=== PATIENT | female | born 1970 | race Caucasian/White ===

== ENCOUNTER 2019-04-13 07:25 | Outpatient (CLI) | payer OTHER, SELFPAY ==
--- NOTE | ~2019-04-13 | CT_ITS ---
EXAMINATION: CT abdomen pelvis w con DATE: 04/13/2019 08:05 INDICATION: Mid abdominal pain TECHNIQUE: Computed tomography (CT) of the abdomen and pelvis was performed with 100 cc Omnipaque 350 intravenous contrast. Automated exposure control and iterative reconstruction technique were employe d. Exam dose: 484.74 mGy-cm total exam DLP. COMPARISON: None. FINDINGS: There are numerous bilateral pneumatoceles. No infiltrate or consolidation or mass density in the lower lung zones. Normal heart size. No pericardial or pleural effusion. Diffuse hepatic steatosis. No hepatic, splenic, pancreatic space-occupying mass lesion or dilatation of the bile or pancreatic ducts. Normal morphology of the adrenal glands. There is a 7 mm or smaller probable cyst in the upper pole of each kidney and at the lower pole of th e right kidney No urinary tract calculus or hydroureteronephrosis. Normal caliber of the abdominal aorta with minimal atherosclerotic calcification. No intraperitoneal or retroperitoneal or pelvic mass lesion or adenopathy or ascites. There is a prominent amount of fecal material throughout the colon. There are some air-fluid levels i n the small bowel and right colon, which may be due to enterocolitis. No bowel obstruction. No bowel wall thickening, pneumatosis or intraperitoneal free air. There are bilateral L5 pars interarticularis defects but no spondylolisthesis. No suspicious osteolyt ic or osteoblastic lesions. IMPRESSION: Small bowel and right colon fluid levels, without obstruction, suggesting enterocolitis Hepatic steatosis Renal probable subcentimeter cysts Bilateral pneumatoceles Bilateral L5 pars interarticularis defects Reviewed, dictated and finalized at [facility]. Reviewed, dictated and finalized at [facility]. [employer] [facility] IMPRESSION: Small bowel and right colon fluid levels, without obstruction, sug gesting enterocolitis Hepatic steatosis Renal probable subcentimeter cysts Bilateral pneumatoceles Bilateral L5 pars interarticularis defects
[2019-04-13 08:02] LABS: Blood Urea Nitrogen 13 mg/dL (8-26); Estimated Glomerular Filt Rate > 60
== END 2019-04-13 07:26 | disposition home or self-care (01) ==
LOC: ANHIMG 07:42
PROVIDERS: PCP Nurse Practitioner Family; Visit Provider Nurse Practitioner Family
DX: R10.9 Unspecified abdominal pain (principal); R19.00 Intra-abdominal and pelvic swelling, mass and lump, unspecified site; K76.0 Fatty (change of) liver, not elsewhere classified
CPT/HCPCS: 74177; Q9967

== ENCOUNTER 2025-01-23 14:43 | Outpatient (CLI) | payer OTHER, SELFPAY ==
--- NOTE | 2025-01-24 07:00 | WPDPFTINT ---
PFT Procedure Performed PFT Procedure Performed Spirometry with Pre/Post Bronchodilator Plethysmography (Lung Vol) Diffusing Cap (DLCO) Flow Vol Loop PFT Interpretation This is a pulmonary function test with pre and post-bronchodilator spirometry, plethysmography and diffusing capacity. The test was performed and results interpreted in accordance with the 2019 and 2005 ATS/ERS Task Force guidelines respectively using the Global Lung Function Initiative-2012 reference equations. Patient demonstrated good effort and cooperation. Reproducibility criteria were met. The quality of the pre bronchodilator spirometry maneuver was Grade A and post bronchodilator spirometry maneuver was Grade A. Findings: Spirometry: The contour of the inspiratory and expiratory flow tracing are normal. The pre bronchodilator FVC is 3.33 L, 103% predicted. The pre bronchodilator FEV1 is 2.55 L, 99% predicted. The pre bronchodilator FEV1: FVC ratio is 77%. The post bronchodilator FVC is 3.39 L, representing a 2% increase. The post bronchodilator FEV1 is 2.61 L, representing a 2% increase. The post bronchodilator FEV1: FVC ratio 77%. Plethysmography: The total lung capacity is 4.86 L, 99% predicted. The functional residual capacity is 2.60 L, 95% predicted. The residual volume is 1.53 L, 84% predicted. Diffusing capacity: The diffusing capacity unadjusted for hemoglobin and carboxyhemoglobin is 21.3, 98% predicted. The diffusing capacity adjusted for alveolar volume is 4.92, 107% predicted. Impression: The spirometry is normal without evidence of an obstructive abnormality. There is no significant improvement after inhaling a single dose of albuterol. The lung volumes are normal. The diffusing capacity is normal. There are no prior studies for comparison
== END 2025-01-23 14:44 | disposition home or self-care (01) ==
LOC: ANHPFT 14:45
PROVIDERS: PCP Family Medicine; Visit Provider Internal Medicine Critical Care Medicine
DX: J98.4 Other disorders of lung (principal)
CPT/HCPCS: 94060; 94726; 94729

== ENCOUNTER 2025-01-31 15:09 | Outpatient (CLI) | payer OTHER, SELFPAY ==
--- NOTE | ~2025-01-31 | MM_ITS ---
EXAMINATION: MM screening leslie BI w judie HISTORY: Screening. TECHNIQUE: Craniocaudal and mediolateral oblique 3-D tomosynthesis images were obtained and synthetic 2-D images were generated. CAD analysis was submitted and interpreted. COMPARISON: 2013 BREAST PARENCHYMAL COMPOSITION: Dense: The breast tissue is heterogeneously dense, which may obscure small masses. FINDINGS: There are multiple, bilateral, circumscribed nodules/masses, a benign finding. No suspicious masses are seen. There are no suspicious calcifications. No unexplained architectural distortion is seen. There are no skin or nipple abnormalities identified. There is no adenopathy seen on the images submitted. IMPRESSION: No mammographic evidence to suggest malignancy is seen. The patient may return to screening mammography as per ACR guidelines. BI-RADS: 2 - Benign. Reviewed, dictated and finalized at location B. TING MACHINE OPERATOR
--- OUTSIDE RECORDS SUMMARY | 2025-01-31 15:14 | XMS_ITS | Clinical Summary ---
Author Organization [employer] [facility] [address] [facility] Address [address] [place] [address] Care Team Providers Care Senior Policy Associate Name Role Phone Angelo Ayoub MD Primary Care Provider [phone] Allergies Active Allergy Reactions Criticality Noted Date Comments Tetanus Immune Globulin F(Ab ')2 (Equine) Dizziness,Delirium Medium 05/19/2019 Tramadol Hives High 05/19/2019 Medications atorvastatin (LIPITOR) 10 mg tablet TAKE 1 TABLET BY MOUTH EVERY DAY 9 Active Cholecalciferol , Vitamin D3, 50 mcg (2,000 unit) Capsule Take 4,000 Units by mouth daily. Active cyclobenzaprine (FLEXERIL) 10 mg tablet Take 10 mg by mouth 3 times daily as needed. Active fluticasone propionate (FLONASE) 50 mcg/spray Mona, Suspension nasal inhaler Administer 1 Mona in each nostril 1 time daily as needed. Active hydroCHLOROthia zide 25 mg tablet Take 1 Tablet by mouth daily. 0 Active hydroxychloroqu ine (PLAQUENIL) 200 mg tablet Take 2 Tablets by mouth daily. 9 Active meloxicam (MOBIC) 15 mg tablet Take 1 Tablet by mouth daily. 0 Active rizatriptan (MAXALT) 10 mg Tablet Take 1 Tablet by mouth every 8 hours as needed. 0 Active sertraline (ZOLOFT) 25 mg tablet Take 1 Tablet by mouth daily. 0 Active Active Problems Problem Noted Date Diagnosed Date Fatty liver 05/19/2019 Family History Medical History Relation Name Comments Depression Brother Obsessive Compulsive Disorder Brother Cancer Father Pancreatic Cancer Maternal Grandfather Colon Cancer Maternal Grandmother Other Maternal Grandmother Heart Failure Mother Heart Surgery Mother Colon Cancer Other MGGM Unknown Paternal Grandfather Stroke Paternal Grandmother No Known Problems Sister 1 Heart Attack Sister 2 Relation Name Status Comments Brother Alive Father Maternal Grandfather Maternal Grandmother Mother Alive Other MGGM Paternal Grandfather Paternal Grandmother Sister 1 Alive Sister 2 Social History Tobacco Use Types Packs/Day Years Used Date Smoking Tobacco: Former Cigarettes 0 Q uit: 2005 Smokeless Tobacco: Never Alcohol Use Standard Drinks/Week Comments Yes 0 (1 standard drink = 0.6 oz pur e alcohol) Comments No Sex and Gender Information Value Date Recorded Sex Assigned at Not on file 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 Gender Identity Not on file Sexual Orientation Not on file Last Filed Vital Signs Vital Sign Reading Time Taken Comments Blood Pressure 150/89 06/27/2021 2:35 PM CDT Pulse 74 06/27/2021 2:35 PM CDT Temperature 36.3 C (97.3 F) 06/27/2021 2:11 PM CDT Respiratory Rate 26 06/27/2021 2:35 PM CDT Oxygen Saturation 94% 06/27/2021 2:35 PM CDT Inhaled Oxygen Concentration - - Weight 67.6 kg (149 lb) 06/27/2021 1:12 PM CDT Height 160 cm (5' 3) 06/27/2021 1:12 PM CDT Body Mass Index 26.39 06/27/2021 1:12 PM CDT Plan of Treatment Health Maintenance Due Date Last Done Comments DTAP/TDAP/TD VACCINES (1 - Tdap) 1990 HEPATITIS B VACCINES (1 of 3 - 19+ 3-dose series) 1990 ZOSTER VACCINE (1 of 2) 1990 HPV/Cotest (21-29) 01/03/1992 CERVICAL CANCER SCREENING 2001 HPV/Cotest (30-65) 2001 PAP SMEAR 2001 BREAST CANCER SCREENING 2011 FIT-DNA Q 3 years 01/03/2016 FIT/FOBT Q 1 year 01/03/2016 Flex Sig/CT Colonography Q 5 years 01/03/2016 COVID-19 Vaccine (3 - Pfizer risk series) 07/31/2020 07/03/2020, 06/12/2020 INFLUENZA VACCINE (#1) 2024 COLORECTAL SCREENING 06/28/2031 06/27/2021, 06/28/19 Colorectal Cancer Screening 06/28/2031 Procedures Procedure Name Priority Date/Time Associated Diagnosis Comments COLONOSCOPY REPORT 06/27/2021 2: 45 PM CDT from Last 3 Months or Most Recently Relevant to Health Maintenance Results * COLONOSCOPY REPORT (06/27/2021 2:45 PM CDT) Narrative Procedure Note Malik Loredo MD - 06/27/2021 2:45 PM CDT [facility] Endoscopy Patient Name: Mimi Melgar Procedure Date: 06/27/2021 Date of : 1970 Attending MD: Malik Loredo MD Procedure: Colonoscopy Indications: Screening for colorectal malignant neoplasm Providers: Malik Loredo MD Referring MD: Angelo Ayoub MD Medicines: Monitored Anesthesia Care Complications: No immediate complications. Procedure: Informed consent was obtained for the procedure, including moderate sedation after risks were discussed. Based on the pre-procedure assessment, including review of the patient's medical history, medications, allergies, and review of systems, the patient was deemed to be an appropriate candidate for sedation. A timeout was performed. Continuous ECG monitoring, pulse oximetry, blood pressure monitoring, and direct observation were performed. The Colonoscope was introduced through the anus and advanced to the cecum, identified by appendiceal orifice and ileocecal valve. The colonoscopy was performed without difficulty. The patient tolerated the procedure well. The quality of the bowel preparation was good. The quality of the bowel preparation was evaluated using the BBPS (Seibert Bowel Preparation Scale) with scores of: Right Colon = 2 (minor amount of residual staining, small fragments of stool and/or opaque liquid, but mucosa seen well), Transverse Colon = 3 (entire mucosa seen well with no residual staining, small fragments of stool or opaque liquid) and Left Colon = 3 (entire mucosa seen well with no residual staining, small fragments of stool or opaque liquid). The total BBPS score equals 8. Findings: The perianal and digital rectal examinations were normal. A diminutive polyp was found in the ascending colon. The polyp was sessile. The polyp was removed with a cold snare. Resection and retrieval were complete. The exam was otherwise without abnormality on direct and retroflexion views. Impression: - One diminutive polyp in the ascending colon, removed with a cold snare. Resected and retrieved. - The examination was otherwise normal on direct and retroflexion views. Recommendation: - Discharge patient to home (with escort). - Await pathology results. - Repeat colonoscopy in 5 years for surveillance with Tahir. Procedure Code(s): --- Professional --- 58104, Colonoscopy, flexible; with removal of tumor(s), polyp(s), or other lesion(s) by snare technique CPT copyright 2020 [employer]. All rights reserved. The codes documented in this report are preliminary and upon under ground miner review may be revised to meet current compliance requirements. Malik Loredo MD 06/27/2021 2:45:05 PM This report has been signed electronically. Number of Addenda: [id number] [place] [address] Malik Loredo MD GI PROCEDURE ORDERABLES Final Result from Last 3 Months or Most Recently Relevant to Health Maintenance Insurance [employer] CHOICE POS II Care Teams Senior Policy Associate Relationship Specialty Start Date End Date Angelo Ayoub MD [address] [place] [id number] PCP - General Family Practice 05/17/19
--- OUTSIDE RECORDS SUMMARY | 2025-01-31 15:14 | XMS_ITS | Encounter Summary ---
Author Organization [facility] Address [address] [place] [address] Care Team Providers Care Metallurgy Teacher Name Role Phone Mamie Diaz MD Primary Care Provider + Encounter Details Date Type Department Care Team (Late st Contact Info) Description 10/15/2022 Lab Requisition [facility] - DermPath Lab [address] [place] [address] Gilberto Esteban MD [address] [place] [address] Social History Tobacco Use Types Packs/Day Years Used Date Smoking Tobacco: Never Assessed Comments Unknown Sex and Gender Information Value Date Recorded Sex Assigned at Not on file 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 Gender Identity Not on file Sexual Orientation Not on file documented as of this encounter Plan of Treatment Not on file documented as of this encounter Procedures Procedure Name Priority Date/Time Associated Diagnosis Comments DERMATOPATHOLOGY Routine 10/14/2022 3:33 AM CDT documented in this encounter Results * DERMATOPATHOLOGY (10/14/2022 3:33 AM CDT) Case Report Dermatopathology Report Case: [id number] Authorizing Provider: Gilberto Esteban MD Collected: 10/14/2022 03:33 AM Ordering Location: [facility] DermPath Lab Received: 10/16/2022 07:17 AM Pathologist: Sulma Bowman MD Specimen: Skin, right breast 08/14/202 3 1:00 PM CDT DERMATOPATHOLOGY LABORATORY Final Diagnosis Specimen A. SKIN, right breast: BASAL CELL CARCINOMA, NODULAR TYPE (C44.511) 3 1:00 PM CDT DERMATOPATHOLOGY LABORATORY at 1300 CDT Clinical History R/O [facility] Path#[id number] 3 1:00 PM CDT DERMATOPATHOLOGY LABORATORY Gross Description Specimen A: Received is one formalin filled container labeled with the patient's name and designated right breast. The specimen consists of a shave biopsy measuring 4x5x1 mm. Jar 0. 1:00 PM CDT DERMATOPATHOLOGY LABORATORY Microscopic Description Specimen A. SKIN, right breast: Within the dermis there are aggregates of basaloid cells with a high nuclear to cytoplasmic ratio and peripheral palisading. 1:00 PM CDT DERMATOPATHOLOGY LABORATORY Disclaimer An external and internal positive and negative controls are appropriate for the histochemical, immunohistochemical and immunofluorescence stain(s) in this case (if any), except where stated explicitly. The performance characteristics of the stain(s) cited in this report were developed and its performance characteristic determined by the Dermatopathology Laboratory at [facility], directed by Dr. Abdiaziz Sánchez. These tests need not be, and therefore are not, approved by the [place] Food and Drug Administration. The tests are used for clinical purposes. Billing Codes Specimen Charges Stain Charges 03097 1 3 1:00 PM CDT DERMATOPATHOLOGY LABORATORY Embedded Images 1:00 PM CDT DERMATOPATHOLOGY LABORATORY Pathology/Cytolo gy TISSUE SPECIMEN FROM SKIN / Unknown 10/14/2022 3:33 AM CDT 10/16/2022 7:17 AM CDT us Gilberto Esteban MD LAB - PATHOLOGY/CYTOLOGY ORDER ROSALIO Final Result DERMATOPATHOLOGY LABORATORY [facility] - Department of Dermatology [address] [phone] documented in this encounter Visit Diagnoses Not on filedocumented in this encounter Care Teams Metallurgy Teacher Relationship Specialty Start Date End Date Rostovtseva, Mamie Y, MD [address] [place] [address] PCP - General 03/21/13 documented as of this encounter
--- OUTSIDE RECORDS SUMMARY | 2025-01-31 15:14 | XMS_ITS | Clinical Summary ---
Author Organization [facility] Address [address] [place] [address] Care Team Providers Care Windows And Doors Installer Name Role Phone Angelo Ayoub MD Primary Care Provider [phone] Allergies Active Allergy Reactions Criticality Noted Date Comments Codeine Other (see comment),Vomiting 04/03/2021 Gramineae Pollens Cough 11/24/2024 Molds & Smuts Cough 11/24/2024 Nlxnvwp-Aidlbp-Ddtxs Pertussis Dizziness 04/02/2019 Tramadol Hives,Itching,Unknown High 04/02/2019 Medications Cholecalciferol (VITAMIN D3) 50 MCG (1999 UT) Cap 4,000 Units. Active hydrochlorothia zide 25 MG tablet Take 1 tablet (25 mg total) by mouth daily. 9 Active acetaminophen (TYLENOL) 500 MG tablet Take 1 tablet (500 mg total) by mouth every 4 (four) hours as needed for Pain. Active QULIPTA tablet Take 1 tablet (30 mg total) by mouth daily. 5 Active LIPITOR 40 MG tablet Take 1 tablet (40 mg total) by mouth daily. 5 Active LEXAPRO 10 MG tablet Take 1 tablet (10 mg total) by mouth daily. 5 Active senna-docusate (SENOKOT-S) 8.6-50 MG tablet Take 1 tablet by mouth daily. 60 tablet 1 5 Active oxyCODONE-aceta minophen (PERCOCET) 5-325 MG tabletIndicatio ns:Acute Pain < 7 Day Supply,postop Take 1-2 tablets by mouth every 6 (six) hours as needed for Pain. Indications: Acute Pain < 7 Day Supply, postop 55 tablet 5 Active diazePAM (VALIUM) 5 MG tabletIndicatio ns:Spondylolist hesis at L5-S1 level Take 1 tablet (5 mg total) by mouth every 8 (eight) hours as needed for Muscle Spasms. 42 tablet 5 Active naloxone (NARCAN) 4 MG/0.1ML nasal spray 1 spray by Nasal route as needed for Opioid reversal. may repeat every 2 to 3 minutes in alternating nostrils until medical assistance becomes available 1 each 5 12/06/19 26 Active methocarbamol (ROBAXIN) 750 MG Tab Take 1 tablet (750 mg total) by mouth 3 (three) times daily for 30 days. 90 tablet 5 01/05/20 25 Active Problems Problem Noted Date Diagnosed Date Spondylolisthesis at L5-S1 level 12/05/2024 Encounters Date Type Department Care Team Description 01/16/2025 2:13 PM IRONER OR PRESSER - 01/16/2025 11:59 PM IRONER OR PRESSER Hospital Encounter [facility] [place] [address] Jarek Stewart MD Discharge Disposition: Home or Self Care (Routine Discharge) 01/16/2025 Travel 12/04/2024 7:33 AM CDT Anesthesia Event [facility] [place] [address] Yoni Lundy MD Jackson, Samantha Rae, TECHNICAL PROFESSIONAL 12/04/2024 7:30 AM CDT - 12/04/2024 11:[address] [facility] [place] [address] Jarek Stewart MD LUMBAR 5-SACRAL 1 TRANSFORAMINAL LUMBAR INTERBODY FUSION (LEFT SIDED) WITH INTRAOPERATIVE NERVE MONITORING 12/04/2024 5:18 AM CDT - 12/06/2024 1:56 PM CDT Hospital Encounter [facility] [address] [place] [address] Jarek Stewart MD Discharge Disposition: Home or Self Care (Routine Discharge) 12/04/2024 Travel 11/24/2024 2:54 PM CDT - 11/24/2024 3:42 PM CDT Hospital Encounter [facility] [place] [address] Jarek Stewart MD Discharge Disposition: Home or Self Care (Routine Discharge) 11/24/[address] [facility] [place] [address] Alejandra, [facility] Provider Surgery Instructions 11/24/2024 Travel from Last 3 Months Immunizations Immunization Administration Dates Next Due PFIZER COVID-19 (ORIGINAL FO RMULATION, PURPLE CAP) mRNA, LNP-S, PF, 30 MCG/0.3 ML DOSE 07/03/2020,06/12/2020 Family History Medical History Relation Comments Heart Disease Mother Relation Status Comments Father Mother Social History Tobacco Use Types Packs/Day Years Used Date Smoking Tobacco: Former Cigarettes Smokeless Tobacco: Never Tobacco Cessation:Counseling Given: Not Answered Comments:Quit over 10 years ago Alcohol Use Standard Drinks/Week Comments Yes 0 (1 standard drink = 0.6 oz pur e alcohol) [facility] Utilities Answer Date Recorded In the past 12 months has [facility] WORKING OUT WORKS, oil, or water [employer]ik[employer] threatened to shut off services in your home? No 12/06/2024 Humiliation, Afraid, Rape, and Kick questionnair e Answer Date Recorded Within the last year, have y ou been afraid of your partner or ex-partner? No 12/06/2024 Within the last year, have y ou been humiliated or emotionally abused in other ways by your partner or ex-partner? No Within the last year, have y ou been kicked, hit, slapped, or otherwise physically hurt by your partner or ex-partner? No 12/06/2024 Within the last year, have y ou been raped or forced to have any kind of sexual activity by your partner or ex-partner? No 12/06/2024 Overall Financial Resource Strain (CARDIA) Answe r Date Recorded How hard is it for you to pa y for the very basics like food, housing, medical care, and heating? Not hard at all 12/06/2024 Hunger Vital Sign Answer Date Recorded Within the past 12 months, y ou worried that your food would run out before you got the money to buy more. Never true 12/07/19 25 Within the past 12 months, t he food you bought just didn't last and you didn't have money to get more. Never true 12/06/2024 PRAPARE - Transportation Answer Date Re corded In the past 12 months, has l ack of transportation kept you from medical appointments or from getting medications? No 03/2024 In the past 12 months, has l ack of transportation kept you from meetings, work, or from getting things needed for daily living? No 12/06/2024 Housing Stability Vital Sign Answer Skyler e Recorded In the last 12 months, was t here a time when you were not able to pay the mortgage or rent on time? No 12/06/2024 In the past 12 months, how m any times have you moved where you were living? 0 12/06/2024 At any time in the past 12 m [facility], were you homeless or living in a detention (including now)? No 12/06/2024 Comments No Sex and Gender Information Value Date Recorded Sex Assigned at Female 11/24/2024 2:52 PM CDT Legal Sex Female 8:31 AM IRONER OR PRESSER Gender Identity Not on file Sexual Orientation Not on file Last Filed Vital Signs Vital Sign Reading Time Taken Comments Blood Pressure 118/66 12/06/2024 11:37 AM CDT Pulse 94 12/06/2024 11:37 AM CDT Temperature 37.2 C (99 F) 12/06/2024 11:37 AM CDT Respiratory Rate 18 12/06/2024 11:37 AM CDT Oxygen Saturation 96% 12/06/2024 11:37 AM CDT Inhaled Oxygen Concentration - - Weight 66 kg (145 lb 8.1 oz) 12/06/2024 7:00 AM CDT Height 160 cm (5' 3) 12/06/2024 7:00 AM CDT Body Mass Index 25.77 12/06/2024 7:00 AM CDT Plan of Treatment Upcoming Encounters Date Type Department Care Team (Late st Contact Info) Description 02/07/2025 3:30 PM IRONER OR PRESSER Appointment [facility] [address] [place] [address] Janette Gonzalez MD [address] [place] [address] Health Maintenance Due Date Last Done Comments Colorectal Cancer Screening Colonoscopy (10 Years) 1971 Annual Physical 1974 Hepatitis C 1989 Hepatitis B Vaccines (1 of 3 - 19+ 3-dose series) 1990 DTaP, Tdap and Td Vaccines ( 2 - Tdap) 08/07/1991 08/06/1981 Mammogram Screening 2011 Pneumococcal Vaccine: 50+ Years (1 of 1 - PCV) 2021 Zoster Vaccines (1 of 2) 2021 COVID-19 Vaccine (3 - 2024-2 6 season) 2024 07/03/2020, 06/12/2020 Influenza Adult (#1) 2024 11/01/2018, 11/01/2018 Hepatitis A Vaccines Aged Out No long er eligible based on patient's age to complete this topic Meningococcal B Vaccine Aged Out No l onger eligible based on patient's age to complete this topic Meningococcal Vaccine Aged Out No avis mariza eligible based on patient's age to complete this topic RSV Immunizations Under 20 Months Aged Out No longer eligible b ased on patient's age to complete this topic Goals Goal Patient Goal Type Associated Problems Recent Progress Patient-Stated? 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 Devices Implanted Type Area Gang Leader Device Identifier Shelf Expiration Date Model / Serial / Lot F3d Straight Lumbar 14mm Implanted:Qty : 1 on 12/04/2024 by Jarek Stewart MD at [facility] [employer] Cage Left: Spine Lumbar NEW AGE MEDICAL [id number] 03/23/2029 [id number] / / [id number] 45mm Orion Implanted:Qty : 2 on 12/04/2024 by Jarek Stewart MD at [facility] Orion Left: Spine Lumbar NEW AGE MEDICAL [id number] / / 6.5x50mm Screw Implanted:Qty : 1 on 12/04/2024 by Jarek Stewart MD at [facility] Screw Left: Spine Lumbar NEW AGE MEDICAL [id number] / / 6.5x45mm Screw Implanted:Qty : 2 on 12/04/2024 by Jarek Stewart MD at [facility] Screw Left: Spine Lumbar NEW AGE MEDICAL [id number] / / Set Screw Implanted:Qty : 4 on 12/04/2024 by Jarek Stewart MD at [facility] Screw Left: Spine Lumbar NEW AGE MEDICAL [id number] / / Polyhead Implanted:Qty : 4 on 12/04/2024 by Jarek Stewart MD at [facility] Screw Left: Spine Lumbar NEW AGE MEDICAL [id number] / / 7.5x45 Screw Implanted:Qty : 1 on 12/04/2024 by Jarek Stewart MD at [facility] Screw Left: Spine Lumbar NEW AGE [facility] [id number] / / Magnetos Implanted:Qty : 1 on 12/04/2024 by Jarek Stewart MD at [facility] Left: Spine Lumbar [id number] 06/06/2029 [id number] / / [id number] Procedures Procedure Name Priority Date/Time Associated Diagnosis Comments XR LUMB SPINE AP+LAT ONLY Routine 01/16/2025 2:24 PM IRONER OR PRESSER Spondylolisthesis of lumbar region SURG XR OARM Routine 12/04/2024 10:17 AM CDT SURG XR LUMB SPINE 1V Routine 12/04/2024 10:17 AM CDT SPIN BONE AUTOGRFT LOCAL 12/04/2024 7:33 AM CDT LUMBAR 5-SACRAL 1 SPONDYLOLISTHESIS M43.16 Case Notes SCHED BY FAX 11/17/2024 [facility] PRETEST 11/24 @ 0800 Special Needs PRONENEEDS FA, OPEN MARCOS, FLUORO, STEALTH, NEW AGEM O-ARM, EMG MONITORING DR REQUESTED 3 HOURS INSJ BIOMECHANICAL DEVICE 12/04/2024 7:33 AM CDT LUMBAR 5-SACRAL 1 SPONDYLOLISTHESIS M43.16 Case Notes SCHED BY FAX 11/17/2024 LCS PRETEST 11/24 @ 08 Special Needs PRONENEEDS FA, OPEN MARCOS, FLUORO, STEALTH, NEW AGEM O-ARM, EMG MONITORING DR REQUESTED 3 HOURS ARTHRODESIS COMBINED POSTERIOR OR POSTEROLATERAL TECH 12/04/2024 7:33 AM CDT LUMBAR 5-SACRAL 1 SPONDYLOLISTHESIS M43.16 Case Notes SCHED BY FAX 11/17/2024 LCS PRETEST 11/24 @ 0800 Special Needs PRONENEEDS FA, OPEN MARCOS, FLUORO, STEALTH, NEW AGEM O-ARM, EMG MONITORING DR REQUESTED 3 HOURS SPINE FIXATION,POST,HARRING TON 12/04/2024 7:33 AM CDT LUMBAR 5-SACRAL 1 SPONDYLOLISTHESIS M43.16 Case Notes SCHED BY FAX 11/17/2024 LCS PRETEST 11/24 @ 0800 Special Needs PRONENEEDS FA, OPEN MARCOS, FLUORO, STEALTH, NEW AGEM O-ARM, EMG MONITORING DR REQUESTED 3 HOURS STEROTACTIC COMPUTER ASSISTED SPINAL 12/04/2024 7:33 AM CDT LUMBAR 5-SACRAL 1 SPONDYLOLISTHESIS M43.16 Case Notes SCHED BY FAX 11/17/2024 LCS PRETEST 11/24 @ 0800 Special Needs PRONENEEDS FA, OPEN MARCOS, FLUORO, STEALTH, NEW AGEM O-ARM, EMG MONITORING DR REQUESTED 3 HOURS SWAIN FACETC/FRMT ARTHRD LUM 1 12/04/2024 7:33 AM CDT LUMBAR 5-SACRAL 1 SPONDYLOLISTHESIS M43.16 Case Notes SCHED BY FAX 11/17/2024 LCS PRETEST 09/19 @ 0800 Special Needs PRONENEEDS FA, OPEN MARCOS, FLUORO, STEALTH, NEW AGEM O-ARM, EMG MONITORING DR REQUESTED 3 HOURS TYPE & SCREEN Routine 11/24/2024 3:23 PM CDT Preop examination HC PTT Routine 11/24/2024 3:23 PM CDT Spondylolisthesis at L5-S1 level HC PROTHROMBIN TIME (PT) Routine 11/24/2024 3:23 PM CDT Spondylolisthesis at L5-S1 level HC BASIC METABOLIC PANEL Routine 11/24/2024 3:23 PM CDT Spondylolisthesis at L5-S1 level HC CBC AUTO W/AUTO DIFF Routine 11/24/2024 3:23 PM CDT Spondylolisthesis at L5-S1 level from Last 3 Months Results * XR LUMB SPINE AP+LAT ONLY (01/16/2025 2:24 PM IRONER OR PRESSER) Anatomical Region Laterality Modality Spine Radiographic Dorene ging 01/16/2025 4:46 PM IRONER OR PRESSER Impressions 01/16/2025 4:48 PM IRONER OR PRESSER IMPRESSION: Postsurgical changes of L5-S1 spinal fusion without evident hardware complication or acute osseous findings. Referred By: Interpreted By: Kojo Evans MD, 01/16/2025 4:46 PM Narrative 01/16/2025 4:48 PM IRONER OR PRESSER [facility] [address] [place], [place] [address] XR LUMB SPINE AP+LAT ONLY INDICATION: 6 weeks post op lumbar spinal fusion TECHNIQUE: AP and lateral views of the lumbar spine. COMPARISON: Preoperative film lumbar spine 12/04/2024. FINDINGS: There are 5 nonrib-bearing lumbar type vertebrae. Minimal dextrocurvature of the lumbar spine apex at L2-L3. Postsurgical changes of L5-S1 spinal fusion with interdisc spacer. Hardware appears intact. No periprosthetic lucency. No convincing evidence for acute fracture or malalignment by plain film evaluation. Moderate disc height loss at L3-L4. Mild multilevel degenerative changes elsewhere. The sacroiliac joints appear unremarkable. Procedure Note Kojo Evans MD - 01/16/2025 [facility] [address] [place], [place] [address] XR LUMB SPINE AP+LAT ONLY INDICATION: 6 weeks post op lumbar spinal fusion TECHNIQUE: AP and lateral views of the lumbar spine. COMPARISON: Preoperative film lumbar spine 12/04/2024. FINDINGS: There are 5 nonrib-bearing lumbar type vertebrae. Minimal dextrocurvatureof the lumbar spine apex at L2-L3. Postsurgical changes of L5-S1 spinalfusion with interdisc spacer. Hardware appears intact. No periprostheticlucency. No convincing evidence for acute fracture or malalignment byplain film evaluation. Moderate disc height loss at L3-L4. Mildmultilevel degenerative changes elsewhere. The sacroiliac joints appearunremarkable. IMPRESSION: Postsurgical changes of L5-S1 spinal fusion without evident hardwarecomplication or acute osseous findings. Referred By: Interpreted By: Kojo Evans MD, 01/16/2025 4:46 PM us Jarek Stewart MD GENERAL IMAGING Final Result * SURG XR OARM (12/04/2024 10:17 AM CDT) Narrative Radiology, Technologist - 12/04/2024 10:18 AM CDT This report does not contain a radiologist's interpretation. Please review associated procedure and/or operative report. us Jarek Stewart MD IMAGES ONLY Final Result * SURG XR LUMB SPINE 1V (12/04/2024 10:17 AM CDT) Anatomical Region Laterality Modality Spine Radiographic Dorene ging 12/05/2024 7:06 AM CDT Impressions 12/05/2024 7:06 AM CDT Impression: No radiologic interpretation will be issued. The report and documentation of this exam will reside in the patient's permanent medical record and in the attending physician's procedure note. Ordered By: JAREK STEWART Interpreted By: Angelo Flores MD, 12/05/2024 7:06 AM Narrative 12/05/2024 7:06 AM CDT [place] [address] FLUOROSCOPY CONTROL ONLY Procedure Note Angelo Flores MD - 12/05/2024 [place] [address] FLUOROSCOPY CONTROL ONLY Impression: No radiologic interpretation will be issued. The report and documentationof this exam will reside in the patient's permanent medical record and inthe attending physician's procedure note. Ordered By: JAREK STEWART Interpreted By: Angelo Flores MD, 12/05/2024 7:06 AM Jarek Stewart MD IMAGES ONLY Final Result * TYPE & SCREEN (11/24/2024 3:23 PM CDT) ABO/RH A POSITIVE 11/24/2024 4:49 PM CDT [facility] ANTIBODY SCREEN NEGATIVE 11/24/2024 4:49 PM CDT [facility] SAMPLE EXPIRATION 12/07/2024,2 359 12/04/2024 7:08 AM CDT [facility] BB COMMENT NO HISTORY OF TRANSFUSIONS , OR ANTIBODIES, NEW SPECIMEN NOT NEEDED 12/04/2024 7:08 AM CDT [facility] 11/24/2024 3:23 PM CDT Heather Chairez [facility] BLOOD BANK TEST ORDERAB LES Final Result [facility] [address] [place] [address], * PTT, PARTIAL THROMBOPLASTIN TIME (11/24/2024 3:23 PM CDT) PTT 35.0 25.1 - 36.5 SEC 11/24/2024 4:06 PM CDT [facility] 11/24/2024 3:23 PM CDT Jarek Stewart MD LABORATORY Final Result Performing Organization Address City/[facility]/ZIP Co de Phone Number [facility] [address] [place] [address], [place] [phone] * PROTIME/INR, VENOUS (11/24/2024 3:23 PM CDT) PROTIME 11.7 10.2 - 12.9 SEC 11/24/2024 4:06 PM CDT [facility] INR 1.0 11/24/2024 4:06 PM CDT [facility] Comment: Recommended INR Therapeutic Goals: 2.0-3.0 Routine Therapy 2.5-3.5 Mechanical Prosthetic Valves (High Risk) 11/24/2024 3:23 PM CDT Jarek Stewart MD LABORATORY Final Result Performing Organization Address City/[facility]/ZIP Co de Phone Number [facility] [address] [place] [address], [place] [phone] * (ABNORMAL) BASIC METABOLIC PANEL (11/24/2024 3:23 PM CDT) [facility] GLUCOSE 132(H) 70 - 99 MG/DL 11/24/2024 4:06 PM T [facility] BUN 12 7 - 18 MG/DL 11/24/2024 4:06 PM T [facility] CREATININE S/P/B 0.61 0.55 - 1.02 MG/DL 11/24/2024 4:06 PM CDT [facility] SODIUM S/P/B 139 136 - 145 MMOL/L 11/24/2024 4:06 PM T [facility] POTASSIUM S/P/B 3.3(L) 3.5 - 5.1 MMOL/L 11/24/2024 4:06 PM T [facility] CHLORIDE S/P/B 104 97 - 115 MMOL/L 11/24/2024 4:06 PM T [facility] CO2 29.8 21 - 32 MMOL/L 11/24/2024 4:06 PM T [facility] CALCIUM S/P/B 9.1 8.5 - 10.1 MG/DL 11/24/2024 4:06 PM T [facility] ANION GAP 5.2 2 - 10 MMOL/L 11/24/2024 4:06 PM T [facility] BUN CREATININE RATIO 19.6 6 - 26 11/24/2024 4:06 PM T [facility] GFR ESTIMATE >90 >90 ML/MIN/1.7 3 M2 11/24/2024 4:06 PM T [facility] Comment: NOTE: eGFR is not calculated for patients <18 years of age or gender unknown. This is an estimated GFR calculation using the new CKD EPI creatinine equation without race and so does not require a correction factor for race. This estimated GFR should not be used for calculating drug doses. 11/24/2024 3:23 PM CDT Jarek Stewart MD LABORATORY Final Result [facility] [address] [place] [address], [place] [phone] * CBC W/DIFF AUTOMATED (11/24/2024 3:23 PM CDT) WBC 5.28 4.5 - 11.0 x10'3/uL 11/24/2024 3:49 PM CDT [facility] RBC 4.64 4.20 - 5.40 x10'6/uL 11/24/2024 3:49 PM CDT [facility] HGB 13.8 12.0 - 16.0 G/DL 11/24/2024 3:49 PM CDT [facility] HCT 41.5 38.0 - 48.0 % 11/24/2024 3:49 PM CDT [facility] MCV 89.4 81.0 - 99.0 FL 11/24/2024 3:49 PM CDT [facility] MCH 29.7 27.0 - 31.0 PG 11/24/2024 3:49 PM CDT [facility] MCHC 33.3 32.0 - 36.0 G/DL 11/24/2024 3:49 PM CDT [facility] RDW 13.2 11.5 - 14.5 % 11/24/2024 3:49 PM CDT [facility] PLT 256 130 - 400 x10'3/uL 11/24/2024 3:49 PM CDT [facility] MPV 9.7 9.3 - 12.2 FL 11/24/2024 3:49 PM CDT [facility] DIFFERENTIAL TYPE AUTOMATED DIFFERENTIAL 11/24/2024 3:49 PM CDT [facility] NEUTROPHILS % 61.7 % 11/24/2024 3:49 PM CDT [facility] LYMPHOCYTES % 28.4 % 11/24/2024 3:49 PM CDT [facility] MONOCYTES % 7.6 % 11/24/2024 3:49 PM CDT [facility] EOSINOPHILS 1.3 % 11/24/2024 3:49 PM CDT [facility] BASOPHILS 0.8 % 11/24/2024 3:49 PM CDT [facility] IMMATURE GRANS % 0.2 % 11/25/19 3:49 PM CDT [facility] ABS. NEUTROPHILS 3.26 1.80 - 7.70 x10'3/uL 11/24/2024 3:49 PM CDT [facility] ABS. LYMPHOCYTES 1.50 1.00 - 4.80 x10'3/uL 11/24/2024 3:49 PM CDT [facility] ABS. MONOCYTES 0.40 0.24 - 0.86 x10'3/uL 11/24/2024 3:49 PM CDT [facility] ABS. EOSINOPHILS 0.07 0.04 - 0.36 x10'3/uL 11/24/2024 3:49 PM CDT [facility] ABS. BASOPHILS 0.04 0.01 - 0.08 x10'3/uL 11/24/2024 3:49 PM CDT [facility] ABS. IMMATURE GRANULOCYTES 0.01 0.00 - 0.49 x10'3/uL 11/24/2024 3:49 PM CDT [facility] 11/24/2024 3:23 PM CDT us Jarek Stewart MD LABORATORY Final Result [facility] [address] [place] [address], [place] [phone] from Last 3 Months Insurance [facility] Advance Directives * Full Code (Latest Code Status on File) Date Activated Date Inactivated Comments 12/04/2024 3:10 PM 12/06/2024 4:02 PM Care Teams Windows And Doors Installer Relationship Specialty Start Date End Date Angelo Ayoub MD [address] [place] [address] PCP - General FAMILY PRACTICE 03/03/19
--- OUTSIDE RECORDS SUMMARY | 2025-01-31 15:14 | XMS_ITS | Encounter Summary ---
Author Organization [facility] Address [address] [place] [id number] Care Team Providers Care Plant Mechanic Name Role Phone Angelo Ayoub MD Primary Care Provider [phone] Encounter Details Date Type Department Care Team (Late st Contact Info) Description 11/24/2024 NextPotential Message Enc [facility] Pre-Admission Testing [address] [facility] [address] [facility], [facility] Provider Surgery Instructions Social History Tobacco Use Types Packs/Day Years Used Date Smoking Tobacco: Former Cigarettes Smokeless Tobacco: Never Comments:Quit over 10 years ago Alcohol Use Standard Drinks/Week Comments Yes 0 (1 standard drink = 0.6 oz pur e alcohol) Comments No Sex and Gender Information Value Date Recorded Sex Assigned at Female 11/24/2024 2:52 PM CDT Legal 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 Wish to be (Past 1 Month) No 11/24/2024 3:01 PM CDT Rosalinda Matos RN Act olivier 2. Non-Specific Active Suicidal Thoughts (Past 1 Month) No 11/24/2024 3:01 PM CDT Rosalinda Matos RN Act olivier 6. Suicidal Behavior (Lifetime) No 11/24/2024 3:01 PM CDT Rosalinda Matos RN Act olivier documented as of this encounter Plan of Treatment Upcoming Encounters Date Type Department Care Team (Late st Contact Info) Description 02/07/2025 3:30 PM DIMENSION MILL WORKER Appointment [facility] [address] [place] [address] Janette Gonzalez MD [address] [place], [place] [id number] documented as of this encounter Visit Diagnoses Not on filedocumented in this encounter Care Teams Plant Mechanic Relationship Specialty Start Date End Date Angelo Ayoub MD [address] [address] PCP - General FAMILY PRACTICE 03/03/19 documented as of this encounter
--- OUTSIDE RECORDS SUMMARY | 2025-01-31 15:14 | XMS_ITS | Clinical Summary ---
Author Organization [facility] Address [address] [place] [address] Care Team Providers Care Casting Machine Service Operator Name Role Phone Angelo Ayoub MD Primary Care Provider + [phone] Allergies No known active allergies Medications hydroCHLOROthia zide (HYDRODIURIL) 25 mg tablet Take 25 mg by mouth daily 3 9 Active escitalopram (LEXAPRO) 20 mg tablet Take 20 mg by mouth daily 2 9 Active atorvastatin (LIPITOR) 10 mg tablet Take 10 mg by mouth daily 3 9 Active SUMAtriptan (IMITREX) 50 mg tablet TAKE 1 TAB BY MOUTH AT ONSET OF MIGRAINE. MAY REPEAT AFTER 2HRS IF HEADACHE RETURNS. MAX 200MG/24HRS 0 9 Active meloxicam (MOBIC) 15 mg tablet Take 15 mg by mouth daily Active cholecalciferol (VITAMIN D3) 2,000 unit capsule 4,000 Units Active fluticasone propionate (FLONASE) 50 mcg/actuation nasal spray Administer 1 spray into each nostril daily Active cyclobenzaprine (FLEXERIL) 10 mg tablet Take 10 mg by mouth 3 (three) times a day as needed for muscle spasms Active HYDROcodone-alen taminophen (NORCO) 5-325 mg per tabletIndicatio ns:Pain Take 1 tablet by mouth every 6 (six) hours as needed Active Active Problems Problem Noted Date Diagnosed Date Essential hypertension 11/14/2018 Pure hypercholesterolemia 11/14/2018 Depression 11/14/2018 Surgical History Surgery Date Site/Laterality Comments HYSTERECTOMY Family History Medical History Relation Name Comments Thyroid disease Mother Relation Name Status Comments Mother Social History Tobacco Use Types Packs/Day Years Used Date Smoking Tobacco: Former Smokeless Tobacco: Never Personal Safety Answer Date Recorded Getting School Help Needed Not on file 05/22 Comments Unknown Sex and Gender Information Value Date Recorded Sex Assigned at Not on file Legal Sex Female 8:54 PM PATROL COMMUNITY SERVICE OFFICER Gender Identity Not on file Sexual Orientation Not on file Last Filed Vital Signs Vital Sign Reading Time Taken Comments Blood Pressure 124/76 11/14/2018 2:06 PM CDT Pulse - - Temperature - - Respiratory Rate - - Oxygen Saturation - - Inhaled Oxygen Concentration - - Weight 76 kg (167 lb 8 oz) 11/14/2018 2:06 PM CD T Height 160 cm (5' 3) 11/14/2018 2:06 PM CDT Body Mass Index 29.67 11/14/2018 2:06 PM CDT Plan of Treatment Not on file Insurance [facility] Care Teams Casting Machine Service Operator Relationship Specialty Start Date End Date Angelo Ayoub MD PCP - General Family Medicine 11/08/18
--- OUTSIDE RECORDS SUMMARY | 2025-01-31 15:14 | XMS_ITS | Clinical Summary ---
Author Organization [facility] Address [address] [place] [address] Care Team Providers Care Pile Trimmer Name Role Phone Mamie Diaz MD Primary Care Provider + Source Comments [facility],non-owned Affiliates and Associated Physician Practices is amultiple site organization consisting of ambulatory clinics and hospital sitesin [place], [place], [place] and [place]. This disclosure is being madepursuant to the Care Everywhere program and may not contain all information available regarding this patient. 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 Gender Identity Not on file Sexual Orientation Not on file Plan of Treatment Health Maintenance Due Date Last Done Comments COLOGUARD (AGES 45-75) - COL ON CA SCREENING 1971 COLON MONITORING 1971 COLONOSCOPY - COLON CA SCREENING 1971 CT COLONOGRAPHY - COLON CA SCREENING 1971 Colorectal Cancer Screening 1971 FIT - COLON CA SCREENING 1971 FLEX SIG - COLON CA SCREENING 1971 LIPID TESTING 1971 MAMMOGRAM 1971 HIV SCREENING 1986 HEPATITIS C SCREENING 12/28/1988 DTAP/TDAP/TD VACCINES (1 - Tdap) 1990 HEPATITIS B VACCINE (1 of 3 - 19+ 3-dose series) 1990 Cervical Cancer Screening 01/03/1992 PAP SMEAR 01/03/1992 PAP with HPV 2001 PNEUMOCOCCAL VACCINE 50+ (1 of 1 - PCV) 2021 ZOSTER VACCINE (1 of 2) 2021 DEPRESSION SCREENING 03/08/2024 COVID-19 VACCINE (3 - 2024-2 6 season) 2024 07/03/2020, 06/12/2020 INFLUENZA VACCINE (#1) 2024 HIB VACCINE Aged Out No longer eligi ble based on patient's age to complete this topic HPV VACCINE Aged Out No longer eligi ble based on patient's age to complete this topic MENINGOCOCCAL (Group B) VACCINE SHARED DECISION-MAKING Aged Out No longer eligible based on patient's age to complete this topic MENINGOCOCCAL GROUPS A/C/Y/W VACCINE Aged Out No longer eligible b ased on patient's age to complete this topic Insurance AETNA AETNA Care Teams Pile Trimmer Relationship Specialty Start Date End Date Mamie Diaz MD [address] [place] [address] PCP - General 03/21/13
--- OUTSIDE RECORDS SUMMARY | 2025-01-31 15:14 | XMS_ITS | Encounter Summary ---
Author Organization [facility] Address [address] [place] [address] Care Team Providers Care Biomaterials Engineer Name Role Phone Mamie Diaz MD Primary Care Provider + Encounter Details Date Type Department Care Team (Late st Contact Info) Description 06/23/2021 Lab Requisition [facility] Derm[facility] Lab [address] [facility] [address] [facility] [place] [address] Gilberto Esteban MD [address] [facility] [place] [address] Social History Tobacco Use Types Packs/Day Years Used Date Smoking Tobacco: Never Assessed Comments Unknown Sex and Gender Information Value Date Recorded Sex Assigned at Not on file 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 Gender Identity Not on file Sexual Orientation Not on file documented as of this encounter Plan of Treatment Not on file documented as of this encounter Procedures Procedure Name Priority Date/Time Associated Diagnosis Comments DERMATOPATHOLOGY Routine 06/20/2021 12:0 0 AM CDT documented in this encounter Results * DERMATOPATHOLOGY (06/20/2021 12:00 AM CDT) Case Report Dermatopathology Report Case: [id number] Authorizing Provider: Gilberto Esteban MD Collected: 06/20/2021 12:00 AM Ordering Location: [facility] Lab Received: 06/23/2021 03:01 PM Pathologist: Chelly Paz MD Specimen: Skin, right thigh 04/20/202 2 5:25 PM CDT DERMATOPATHOLOGY LABORATORY Final Diagnosis Specimen A. SKIN, right thigh: PIGMENTED SEBORRHEIC KERATOSIS (L82.1) 2 5:25 PM CDT DERMATOPATHOLOGY LABORATORY at 1725 CDT Clinical History SK vs SCC vs other. Path # [id number]. 2 5:25 PM CDT DERMATOPATHOLOGY LABORATORY Gross Description Specimen A: Received is one formalin filled container labeled with the patient's name and designated right thigh. The specimen consists of a shave biopsy measuring [id number]. Jar 0. 2 5:25 PM CDT DERMATOPATHOLOGY LABORATORY Microscopic Description Specimen A. SKIN, right thigh: Sections show an acanthotic lesion composed of relatively uniform keratinocytes. There is hyperkeratosis and pseudo horn cysts. Pigment is present in the keratinocytes composing this tumor. 2 5:25 PM CDT DERMATOPATHOLOGY LABORATORY Disclaimer An external and internal positive and negative controls are appropriate for the histochemical, immunohistochemical and immunofluorescence stain(s) in this case (if any), except where stated explicitly. The performance characteristics of the stain(s) cited in this report were developed and its performance characteristic determined by the Dermatopathology Laboratory at [facility], directed by Dr. Abdiaziz Sánchez. These tests need not be, and therefore are not, approved by the [place] Food and Drug Administration. The tests are used for clinical purposes. Billing Codes Specimen Charges Stain Charges 85311 1 2 5:25 PM CDT DERMATOPATHOLOGY LABORATORY Embedded Images 2 5:25 PM CDT DERMATOPATHOLOGY LABORATORY Pathology/Cytolog y TISSUE SPECIMEN FROM SKIN / Unknown 06/20/2021 06/23/2021 3:01 PM CDT us Gilberto Esteban MD LAB - PATHOLOGY/CYTOLOGY ORDER ROSALIO Final Result DERMATOPATHOLOGY LABORATORY [facility] - Department of Dermatology [address], [address] [phone] documented in this encounter Visit Diagnoses Not on filedocumented in this encounter Care Teams Biomaterials Engineer Relationship Specialty Start Date End Date Mamie Diaz MD [address] [place] [address] PCP - General 03/21/13 documented as of this encounter
--- OUTSIDE RECORDS SUMMARY | 2025-01-31 15:14 | XMS_ITS | Encounter Summary ---
Author Organization [facility] Address [address] [place] [address] Care Team Providers Care Solar Technician Name Role Phone Mamie Diaz MD Primary Care Provider + Encounter Details Date Type Department Care Team (Late st Contact Info) Description 12/25/2021 Lab Requisition [facility] DermPath Lab [address] [facility] [place] [address] Gilberto Esteban MD [address] [facility] [address] Social History Tobacco Use Types Packs/Day Years Used Date Smoking Tobacco: Never Assessed Comments Unknown Sex and Gender Information Value Date Recorded Sex Assigned at Not on file 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 Gender Identity Not on file Sexual Orientation Not on file documented as of this encounter Plan of Treatment Not on file documented as of this encounter Procedures Procedure Name Priority Date/Time Associated Diagnosis Comments DERMATOPATHOLOGY Routine 12/24/2021 12:0 0 AM CDT documented in this encounter Results * DERMATOPATHOLOGY (12/24/2021 12:00 AM CDT) Case Report Dermatopathology Report Case: [id number] Authorizing Provider: Gilberto Esteban MD Collected: 12/24/2021 12:00 AM Ordering Location: [facility] Derm[facility] Lab Received: 12/25/2021 05:49 PM Pathologist: Sulma Bowman MD Specimen: Skin, mid back 12:55 PM CDT DERMATOPATHOLOGY LABORATORY Final Diagnosis Specimen A. SKIN, mid back: BASAL CELL CARCINOMA, PIGMENTED AND NODULAR (C44.519) 12:55 PM CDT DERMATOPATHOLOGY LABORATORY at 1255 CDT Clinical History BCC vs. MM. Path# [id number] 12:55 PM CDT DERMATOPATHOLOGY LABORATORY Gross Description Specimen A: Received is one formalin filled container labeled with the patient's name and designated mid back. The specimen consists of a shave biopsy measuring [id number]. Jar 0. 12:55 PM CDT DERMATOPATHOLOGY LABORATORY Microscopic Description Specimen A. SKIN, mid back: There are aggregates of basaloid cells with a high nuclear to cytoplasmic ratio and peripheral palisading. There is abundant melanin. 12:55 PM CDT DERMATOPATHOLOGY LABORATORY Disclaimer An external and internal positive and negative controls are appropriate for the histochemical, immunohistochemical and immunofluorescence stain(s) in this case (if any), except where stated explicitly. The performance characteristics of the stain(s) cited in this report were developed and its performance characteristic determined by the Dermatopathology Laboratory at [facility], directed by Dr. Abdiaziz Sánchez. These tests need not be, and therefore are not, approved by the [place] Food and Drug Administration. The tests are used for clinical purposes. Billing Codes Specimen Charges Stain Charges 10227 1 12:55 PM CDT DERMATOPATHOLOGY LABORATORY Embedded Images 12:55 PM CDT DERMATOPATHOLOGY LABORATORY Pathology/Cytolog y TISSUE SPECIMEN FROM SKIN / Unknown 12/24/2021 12/25/2021 5:49 PM CDT us Gilberto Esteban MD LAB - PATHOLOGY/CYTOLOGY ORDER ROSALIO Final Result DERMATOPATHOLOGY LABORATORY [facility] - Department of Dermatology [facility] Medicine [address] [place] [address], [address] [place] [address], [facility] [place] [phone] documented in this encounter Visit Diagnoses Not on filedocumented in this encounter Care Teams Solar Technician Relationship Specialty Start Date End Date Mamie Diaz MD [address] [place] [phone] PCP - General 03/21/13 documented as of this encounter
--- OUTSIDE RECORDS SUMMARY | 2025-01-31 15:14 | XMS_ITS | Clinical Summary ---
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 Gender Identity Not on file Sexual Orientation Not on file Plan of Treatment Health Maintenance Due Date Last Done Comments Hepatitis C Virus (HCV) Screening 1971 TdaP Immunization 1971 Hepatitis B Immunization (1 of 3 - 19+ 3-dose series) 1990 Pap Smear 01/03/1992 Cervical Cancer Screening (CCS) 2001 HPV/Cotest 2001 Cologuard 01/03/2016 Colonoscopy 01/03/2016 Colorectal Cancer Screening 01/03/2016 Immunochemical Fecal Occult Blood 01/03/2016 Pneumococcal Immunization (5 0+ years) (1 of 1 - PCV) 2021 Zoster Immunization (1 of 2) 2021 Influenza Immunization (#1) 2024 SARS-COV-2 Immunization ( season) 2024 Respiratory Syncytial Virus (RSV) Immunization (Adult) (1 - 1-dose 75+ series) 2046 Human Papillomavirus (HPV) Immunization Aged Out No longer eligible b ased on patient's age to complete this topic Meningococcal Immunization (ACWY) Aged Out No longer eligible based on patient's age to complete this topic Rotavirus Immunization Aged Out No lo nger eligible based on patient's age to complete this topic
== END 2025-01-31 15:10 | disposition home or self-care (01) ==
LOC: ANHFOHIMG 15:12
PROVIDERS: PCP Family Medicine; Visit Provider Nurse Practitioner Family
DX: Z12.31 Encounter for screening mammogram for malignant neoplasm of breast (principal)
CPT/HCPCS: 77063; 77067